=== PATIENT | female | born 1990 | race American Indian/Alaskan Native ===

== ENCOUNTER 2017-06-16 07:35 | Emergency (ER) | payer BC ==
[2017-06-16] MEDS ORDERED: Albuterol/Ipratropium 3.0-0.5 MG/3 ML Neb Soln NEB ONE (07:44)
[2017-06-16] MEDS ORDERED: Albuterol 8 GM Inhaler INH ONE (08:00)
[2017-06-16] MEDS ORDERED: predniSONE 20 MG Tab PO ONE (08:00)
--- NOTE | 2017-06-17 00:38 | ER ---
DATE SEEN: 06/16/2017 TIME SEEN: 0745 hours. CHIEF COMPLAINT: Difficulty breathing. HISTORY OF PRESENT ILLNESS: A 26-year-old female complaining of cold symptoms that started 3 days ago. They include difficulty breathing, cough, and wheezing, but no fever. REVIEW OF SYSTEMS: No chest pain. PAST MEDICAL HISTORY: No other previous medical problems. SOCIAL HISTORY: Smoker. PHYSICAL EXAMINATION: GENERAL: Pleasant. VITAL SIGNS: Afebrile, blood pressure is normal, pulse is 103, and oxygenation 95% room air. ENT: Negative. NECK: Supple. Trachea midline. CHEST: Clear with exception of wheezing. CARDIOVASCULAR: Normal. IMPRESSION: Acute bronchitis. TREATMENT: DuoNeb, which improved her symptoms significantly. I sent her home with prednisone 10 mg b.i.d. and ProAir 2 puffs q.6 hours p.r.n. /[id number] OLYA/JAXON
== END 2017-06-16 08:10 | disposition home or self-care (01) ==
LOC: FB.ED 07:35
DX: J20.9 Acute bronchitis, unspecified (principal); F17.210 Nicotine dependence, cigarettes, uncomplicated
CPT/HCPCS: 94640; 99284; J7620; A9270-GY